=== PATIENT | female | born 1930 | race Caucasian/White ===

== ENCOUNTER 2018-01-13 22:53 | Emergency (ER) | payer MEDICARE, BC ==
[2018-01-13 23:19] VITALS: BP 138/66
[2018-01-14] MEDS ORDERED: HYDROCODONE/ACETAMINOPHEN 5-325 MG (6 TAB/ER DISP) PO PRN (02:15)
--- NOTE | 2018-01-14 02:22 | ER Document Report ---
HPI - HPI Patient complains to provider of: right shoulder pain Pain Level: 5 Context: Patient is an 87-year-old female that comes to the emergency department for chief complaint of right shoulder pain. She states that she had an injection in her shoulder with a cortisone shot earlier today, she states that she felt very good initially when she went home but then pain returned back to the pain that she has been having before she received the injection. She states that she has difficulty lifting her arm without having a lot of pinching and shooting pain. She denies any fever or chills, nausea or vomiting, swelling of the area, or other complaints. She states she was diagnosed with bursitis and has had problems with the shoulder going on for a very long time. She is on a blood thinner, Eliquis. She is not a diabetic. Tetanus is up-to-date. She states she was having difficulty sleeping because of the discomfort and she took a Tylenol and this did not help. - REPRODUCTIVE Reproductive: DENIES: : Past Medical History - General Information source: Patient, Relative - - Social History Smoking Status: Never Smoker Frequency of alcohol use: None Drug Abuse: None Lives with: Family Family History: Reviewed & Not Pertinent - Past Medical History Cardiac Medical History: Reports: Hx Hypertension Denies: Hx Heart Attack Pulmonary Medical History: Denies: Hx Asthma Neurological Medical History: Denies: Hx Cerebrovascular Accident, Hx Seizures GI Medical History: Denies: Hx Hepatitis, Hx Hiatal Hernia, Hx Ulcer Musculoskeletal Medical History: Infectious Medical History: Denies: Hx Hepatitis Past Surgical History: Denies: Hx Hysterectomy, Hx Mastectomy, Hx Open Heart Surgery, Hx Pacemaker - Immunizations Immunizations up to date: Yes Hx Diphtheria, Pertussis, Tetanus Vaccination: Yes Vertical Provider Document - CONSTITUTIONAL General Appearance: WD/WN, No Apparent Distress - INFECTION CONTROL TRAVEL OUTSIDE OF THE [place] IN LAST 30 DAYS: No - HEENT HEENT: Atraumatic, Normocephalic. negative: Normal ENT Exam - NECK Neck: Normal Inspection - RESPIRATORY Respiratory: Breath Sounds Normal, No Respiratory Distress - CARDIOVASCULAR Cardiovascular: Regular Rate, Regular Rhythm - GI/ABDOMEN Gastrointestinal: Abdomen Soft, Abdomen Non-Tender - BACK Back: Normal Inspection - MUSCULOSKELETAL/EXTREMETIES Musculoskeletal/Extremeties: Tender - There is tenderness with raising of the right arm, no specific appreciated tenderness with palpation of the shoulder and back otherwise, normal station usher, capillary refill, sensation, pulses. There is a tiny injection vidal over the posterior shoulder with no surrounding erythema, bruising, swelling, abnormal heat, or noted tenderness. Otherwise unremarkable extremity exam. - NEURO Level of Consciousness: Awake, Alert, Appropriate - DERM Integumentary: Warm, Dry, No Rash Course - Re-evaluation Re-evalutation: Patient back to her baseline shoulder pain after the injection after the lidocaine given wore off. She has no swelling of the area, no noted erythema, she is on a blood thinner but there does not appear to be hematoma developing based on her exam. She repeats that she is back to her baseline without increased pain from her baseline. No fever or chills. Explained that the cortisone shot may give her no benefit or it may give her benefit over the next 1-3 days, time will tell. Patient requests something to help her sleep, she will be provided with a small amount of pain medication, stool softener, and a sling. Discussed close follow-up with her provider. Discussed return precautions in detail. Patient and state satisfaction and agreement with plan. - Vital Signs Vital signs: Temp Pulse Resp BP Pulse Ox 97.3 F 94 16 138/66 H 94 01/13/18 23:17 01/13/18 23:17 01/13/18 23:17 01/13/18 23:17 01/13/18 23:17 Procedures - Immobilization Right arm/shoulder Pre-Proc Neuro Vasc Exam: Normal Immobilizer type: Sling Performed by: RN Post-Proc Neuro Vasc Exam: Normal Alignment checked and good: Yes Discharge - Discharge Clinical Impression: Right shoulder pain Qualifiers: Chronicity: acute Qualified Code(s): M25.511 - Pain in right shoulder Condition: Stable Disposition: HOME, SELF-CARE Additional Instructions: No swelling, bruising, or evidence of infection at this time. Use sling for comfort, take off sling and perform range of motion movement frequently to avoid freezing of shoulder. Take pain medicine only if needed especially at night to help sleep, take Colace stool softener if you do to avoid constipation, during the day take Tylenol for pain. Follow-up with your primary care for additional management. Return if you worsen in anyway including swelling, redness, fever, severe pain, numbness, or any other concerning or worsening symptoms. Prescriptions: Docusate Sodium [Colace 100 mg Capsule] 100 mg PO ASDIR PRN #30 capsule PRN Reason: Hydrocodone/Acetaminophen [[place] 5-325 mg Tablet] 0.5 - 1 tab PO ASDIR #8 tablet Referrals: LOCALMD,NO [NO LOCAL MD] - Follow up as needed
== END 2018-01-14 02:58 | disposition home or self-care (01) ==
LOC: ER 22:53
DX: M25.511 Pain in right shoulder (principal)
CPT/HCPCS: 99283; A9270